=== PATIENT | female | born 1965 | race Two or more races ===

== ENCOUNTER 2021-06-01 14:34 | Emergency (ER) | payer SELFPAY ==
[2021-06-01] MEDS ORDERED: Ketorolac 30 MG/ML SDV IVPUSH ONE (15:34)
[2021-06-01] MEDS ORDERED: HYDROmorphone 2 MG/ML Syringe IVPUSH ONE (15:34)
[2021-06-01] MEDS ORDERED: Sodium Chloride 0.9% 1,000 ML IV ONE (15:34)
[2021-06-01] MEDS ORDERED: Ondansetron 4 MG/2 ML SDV IVPUSH ONE (15:34)
[2021-06-01 16:16] LABS: BLOOD UREA NITROGEN,BUN 15 mg/dL (7.0-18.0); CARBON DIOXIDE,CO2 29.7 mmol/L (21.0-32.0); CHLORIDE,CL 101 mmol/L (98-107); GLUCOSE RANDOM 110 mg/dL (74-106); LIPASE 119 U/L (73-393); POTASSIUM,K 3.8 mmol/L (3.5-5.1); SODIUM,NA 139 mmol/L (136-145)
--- NOTE | 2021-06-01 16:16 | EDM.PDOC ---
ED HPI GENERAL MEDICAL PROBLEM - General Chief Complaint: Abdominal Pain Stated Complaint: ABDOMINAL PAIN Time Seen by Provider: 06/01/21 14:35 Source of Information: Reports: Patient History Limitations: Reports: Language Barrier ([place] track supervisor used) - History of Present Illness INITIAL COMMENTS - FREE TEXT/NARRATIVE: HISTORY AND PHYSICAL: History of present illness: Patient is a 55-year-old female who is primarily speaking so Martti track supervisor was used. Patient is a 55 otherwise [id number] female who presents emergency room today with concern of periumbilical abdominal pain that has been ongoing for the past 1 year, slowly worsening over the past 10 days, with the last 1 day being the worst it has ever been. Patient states that the pain does radiate to her back and is making sleeping difficult over the past several days. Patient denies any abdominal surgeries and states that she has fully gone through menopause. Patient denies any health history. Patient states she did take Tylenol earlier today with mild relief of symptoms. Patient reports some generalized itching but denies any other associative symptoms. Patient denies fever, chills, chest pain, shortness of breath, or cough. Denies headache, neck stiff ness, change in vision, syncope, or near syncope. Denies nausea, vomiting, diarrhea, constipation, or dysuria. Has not noted any blood in urine or stool. Patient has been eating and drinking appropriately. Review of systems: As per history of present illness and below otherwise all systems reviewed and negative. Past medical history: As per history of present illness and as reviewed below otherwise noncontributory. Surgical history: As per history of present illness and as reviewed below otherwise noncontributory. Social history: See social history for further information Family history: As per history of present illness and as reviewed below otherwise noncontributory. Physical exam: General: Patient is alert, oriented, and in no acute distress. Patient laying on exam table, mildly uncomfortable appearing holding mid abdomen. Vitals stable and reviewed by me HEENT: Atraumatic, normocephalic, pupils equal and reactive bilaterally, negative for conjunctival pallor or scleral icterus, mucous membranes moist, TMs normal bilaterally, throat clear, neck supple, nontender, trachea midline. No drooling or trismus noted. No meningeal signs. No hot potato voice noted. Lungs: Clear to auscultation, breath sounds equal bilaterally, chest nontender. Heart: S1S2, regular rate and rhythm without overt murmur Abdomen: Soft, nondistended, moderate periumbilical tenderness with negative martinez/rebound. Negative for masses or hepatosplenomegaly. Negative for costovertebral tenderness. Pelvis: Stable nontender. Genitourinary: Deferred. Rectal: Deferred. Skin: Intact, warm, dry. No lesions or rashes noted. Extremities: No obvious deformity of the complete spine. No step-offs, crepitus, or point tenderness to palpation of the complete spine. Full range of motion of the complete spine without pain or difficulty. Otherwise, atraumatic, negative for cords or calf pain. Neurovascular unremarkable. Neuro: Awake, alert, oriented. Cranial nerves II through XII unremarkable. Cerebellum unremarkable. Motor and sensory unremarkable throughout. Exam nonfocal. Notes: Patient is a 55-year-old female, who is primarily speaking so Martti track supervisor use, who presents emergency room today secondary to periumbilical abdominal pain worsening over the past 1 to 2 days but has been ongoing for the past 1 year. Upon arrival to the ED, patient is vitally stable but does appear to be uncomfortable on exam holding her mid abdomen. Patient does have moderate periumbilical tenderness on exam. Will obtain lab work as well as abdominal pelvic CT scan with contrast and provide pain medication, fluids and reassess patient. Mild derangements of CBC unremarkable. CMP shows a mild elevation of glucose at 110, isolated elevation of alk phos at 154. Otherwise mild derangements of CMP are unremarkable. Urinalysis shows trace leukocyte Estrace with 0 red blood cells and 0-1 white blood cells with 1+ bacteria. There are few epithelial cells suggestive of contamination urine without sign of infection. Lipase is within normal limits. Abdominal pelvic CT with contrast shows diverticulosis sigmoid colon without any CT evidence of diverticulitis or abscess. A 5 x 5.6 x 4.2 cm cyst in the left adnexa: Would recommend transabdominal and transvaginal pelvic ultrasound. Cortical cyst in left pole of right kidney. Small umbilical hernia with fat as its content. Upon reevaluation of patient, she has improvement of her symptoms with therapeutics today in the emergency room and states that she is much more co mfortable. Given abdominal pelvic CT scan findings of left-sided ovarian cyst, will obtain transvaginal ultrasound. Transvaginal ultrasound shows no acute abnormality. Greater than 5 cm cyst in the left ovary. This is a abnormal finding in a postmenopausal patient. Gynecology referral recommended. The right ovary is not visualized on this exam. I did call and speak to the PATIENT SUPPORT PARTNER on-call, Dr. Mcconnlel, and thoroughly discussed patient's case. Given that patient has improvement of her symptoms with therapeutics and pain is controlled at this time, Dr. Armendariz feels that patient can call Friday morning for follow-up in the clinic for further evaluation/treatment for her left ovarian cyst. Reevaluation still suggest that patient has improvement of her symptoms with therapeutics. Strict return precautions thoroughly discussed with patient. Discussed importance for calling Friday to set up an appointment time at [facility] or with a women's health care provider and primary care provider. All signs and symptoms that were prompt return to the ED thoroughly discussed with patient. Voices understanding and is agreeable to plan of care. Denies any further questions or concerns at this time. Diagnostics: CBC, CMP, UA, abdominal pelvic CT scan with contrast, lipase, TVUS, Transabd US Therapeutics: Normal saline, Zofran, Toradol, Dilaudid Prescription: Zofran Impression: Left-sided ovarian cyst Abdominal pain Plan: 1. You can alternate ibuprofen and Tylenol as directed for pain and discomfort. Take medication as prescribed. 2. Follow-up with a women's health care provider and primary care provider as discussed. Return to the ED as needed and as discussed. Definitive disposition and diagnosis as appropriate pending reevaluation and review of above. Left Abdomen Pain Score (Numeric/FACES): 7 - Related Data Allergies Allergy/AdvReac Type Severity Reaction Status Date / Time No Known Allergies Allergy Verified 06/01/21 15:18 Home Meds: Home Meds Ondansetron [Zofran ODT] 4 mg PO Q6H PRN #10 tab.dis 06/01/21 [Rx] Past Medical History - Past Health History Medical/Surgical History: Denies Medical/Surgical History - Infectious Disease History Infectious Disease History: Reports: None Social & Family History - Tobacco Use Tobacco Use Status *Q: Never Tobacco User - Caffeine Use Caffeine Use: Reports: None - Recreational Drug Use Recreational Drug Use: No ED ROS GENERAL - Review of Systems Review Of Systems: Comprehensive ROS is negative, except as noted in HPI. ED EXAM, GENERAL - Physical Exam Exam: See Below (see dictation) Course - Vital Signs Last Recorded V/S: Last Vital Signs Temp 98.3 F 06/01/21 15:18 Pulse 63 06/01/21 18:17 Resp 16 06/01/21 15:18 BP 103/42 L 06/01/21 18:17 Pulse Ox 95 06/01/21 18:17 - Orders/Labs/Meds Orders: Active Orders 24 hr Category Date Time Status CULTURE URINE [MREF] Stat Lab 06/01/21 16:45 Received Labs: Laboratory Tests 06/01/21 06/01/21 06/01/21 Range/Units 15:15 15:15 16:45 WBC 10.53 (4.0-11.0) K/uL RBC 4.82 (4.30-5.90) M/uL Hgb 14.1 (12.0-16.0) g/dL Hct 42.2 (36.0-46.0) % MCV 87.6 (80.0-98.0) fL MCH 29.3 (27.0-32.0) pg MCHC 33.4 (31.0-37.0) g/dL RDW Std Deviation 40.8 (28.0-62.0) fl RDW Coeff of Sindy 13 (11.0-15.0) % Plt Count 353 (150-400) K/uL MPV 10.30 (7.40-12.00) fL Neut % (Auto) 63.4 (48.0-80.0) % Lymph % (Auto) 24.9 (16.0-40.0) % [place] % (Auto) 6.3 (0.0-15.0) % Eos % (Auto) 4.7 (0.0-7.0) % Baso % (Auto) 0.7 (0.0-1.5) % Neut # (Auto) 6.7 H (1.4-5.7) K/uL Lymph # (Auto) 2.6 H (0.6-2.4) K/uL [place] # (Auto) 0.7 (0.0-0.8) K/uL Eos # (Auto) 0.5 (0.0-0.7) K/uL Baso # (Auto) 0.1 (0.0-0.1) K/uL Nucleated RBC % 0.0 /100WBC Nucleated RBCs # 0 K/uL Sodium 139 (136-145) mmol/L Potassium 3.8 (3.5-5.1) mmol/L Chloride 101 (98-107) mmol/L Carbon Dioxide 29.7 (21.0-32.0) mmol/L BUN 15 (7.0-18.0) mg/dL Creatinine 0.7 (0.6-1.0) mg/dL Est Cr Clr Drug Dosing 64.46 mL/min Estimated GFR (MDRD) > 60.0 ml/min Glucose 110 H (74-106) mg/dL Calcium 8.5 (8.5-10.1) mg/dL Total Bilirubin 0.2 (0.2-1.0) mg/dL AST 14 L (15-37) IU/L ALT 32 (14-63) IU/L Alkaline Phosphatase 154 H (46-116) U/L Total Protein 8.2 (6.4-8.2) g/dL Albumin 3.9 (3.4-5.0) g/dL Globulin 4.3 H (2.6-4.0) g/dL Albumin/Globulin Ratio 0.9 (0.9-1.6) Lipase 119 (73-393) U/L Urine Color YELLOW Urine Appearance SLT CLOUDY Urine pH 7.0 (5.0-8.0) Ur Specific Placida 1.015 (1.001-1.035) Urine Protein NEGATIVE (NEGATIVE) mg/dL Urine Glucose (UA) NEGATIVE (NEGATIVE) mg/dL Urine Ketones NEGATIVE (NEGATIVE) mg/dL Urine Occult Blood NEGATIVE (NEGATIVE) Urine Nitrite NEGATIVE (NEGATIVE) Urine Bilirubin NEGATIVE (NEGATIVE) Urine Urobilinogen 0.2 (<2.0) EU/dL Ur Leukocyte Esterase TRACE H (NEGATIVE) Urine RBC NONE SEEN (0-2/HPF) Urine WBC 0-1 (0-5/HPF) Ur Epithelial Cells FEW (NONE-FEW) Amorphous Sediment LIGHT (NEGATIVE) Urine Bacteria 1+ H (NEGATIVE) Urine Mucus LIGHT (NONE-MOD) Meds: Medications Discontinued Medications Generic Name Dose Route Start Last Admin Trade Name Freq PRN Reason Stop Dose Admin Hydromorphone HCl 0.5 mg 06/01/21 15:34 06/01/21 15:46 Hydromorphone 2 Mg/Ml Syringe IVPUSH 06/01/21 15:35 0.5 mg ONETIME ONE Administration Sodium Chloride 1,000 mls @ 999 mls/hr 06/01/21 15:34 06/01/21 15:45 Normal Saline IV 06/01/21 16:34 999 mls/hr BOLUS ONE Administration Iopamidol 100 ml 06/01/21 16:54 06/01/21 16:55 Iopamidol 755 Mg/Ml 500 Ml Multipack Bottle IVPUSH 06/01/21 16:55 100 ml ONETIME ONE Administration Ketorolac Tromethamine 30 mg 06/01/21 15:34 06/01/21 15:45 Ketorolac 30 Mg/Ml Sdv IVPUSH 06/01/21 15:35 30 mg ONETIME ONE Administration Ondansetron HCl 4 mg 06/01/21 15:34 06/01/21 15:46 Ondansetron 4 Mg/2 Ml Sdv IVPUSH 06/01/21 15:35 4 mg ONETIME ONE Administration Departure - Departure Time of Disposition: 19:35 Disposition: Home, Self-Care 01 Clinical Impression: Ovarian cyst Qualifiers: Laterality: left Qualified Code(s): N83.202 - Unspecified ovarian cyst, left side Abdominal pain Qualifiers: Abdominal location: periumbilical Qualified Code(s): R10.33 - Periumbilical pain - Discharge Information Prescriptions: Ondansetron [Zofran ODT] 4 mg PO Q6H PRN #10 tab.dis PRN Reason: Nausea/Vomiting Instructions: Abdominal Pain, Adult, [id number], Ovarian Cyst, [id number] Referrals: PCP,None [Primary Care Provider] - Forms: ED Department Discharge Additional Instructions: The following information is given to patients seen in the emergency department who are being discharged to home. This information is to outline your options for follow-up care. We provide all patients seen in our emergency department with a follow-up referral. The need for follow-up, as well as the timing and circumstances, are variable depending upon the specifics of your emergency department visit. If you don't have a primary care physician on staff, we will provide you with a referral. We always advise you to contact your personal physician following an emergency department visit to inform them of the circumstance of the visit and for follow-up with them and/or the need for any referrals to a consulting specialist. The emergency department will also refer you to a specialist when appropriate. This referral assures that you have the opportunity for follow-up care with a specialist. All of these measure are taken in an effort to provide you with optimal care, which includes your follow-up. Under all circumstances we always encourage you to contact your private physician who remains a resource for coordinating your care. When calling for follow-up care, please make the office aware that this follow-up is from your recent emergency room visit. If for any reason you are refused follow-up, please contact the [facility] Emergency Department at and asked to speak to the emergency department charge nurse. [facility] [address] [place] [address] [facility] [address] [place] [address] [facility] [address] [place] [address] 1. You can alternate ibuprofen and Tylenol as directed for pain and discomfort. Take medication as prescribed. 2. Follow-up with a women's health care provider and primary care provider as discussed. Return to the ED as needed and as discussed. Sepsis Event Note (ED) - Focused Exam Vital Signs: Vital Signs Temp Pulse Resp BP Pulse Ox 06/01/21 18:17 63 103/42 L 95 06/01/21 15:18 98.3 F 76 16 139/72 96 - My Orders Last 24 Hours: My Active Orders 06/01/21 16:45 CULTURE URINE [MREF] Stat - Assessment/Plan Last 24 Hours: My Active Orders 06/01/21 16:45 CULTURE URINE [MREF] Stat
[2021-06-01] MEDS ORDERED: Iopamidol 755 MG/ML 500 ML Multipack Bottle IVPUSH ONE (16:54)
--- NOTE | 2021-06-01 17:45 | CT ---
INDICATION: Periumbilical abdominal pain. COMPARISON: None. TECHNIQUE: CT abdomen and pelvis with intravenous contrast; coronal and sagittal reformats. FINDINGS: No abnormal intra pulmonary nodular densities through the lung bases. No evidence of pleural effusion. Normal size cardiac silhouette without any evidence of pericardial effusion. No focal hepatic or splenic pathology. No pancreatic pathology. Gallbladder is unremarkable. No adrenal pathology. No kidney stones or obstructive uropathy.A 3.3 x 3 x 3.2 cm cyst lower pole right kidney. No retroperitoneal lymphadenopathy. No evidence of abdominal or pelvic ascites. Normal appendix. No pneumoperitoneum or intestinal obstruction. Diverticulosis sigmoid colon without any CT evidence of diverticulitis or abscess. A 5 x 5.6 x 4.2 cm cystic lesion left adnexa; suggest obtaining a transabdominal and transvaginal pelvic ultrasound for further assessment. no evidence of inguinal hernia on either side. Small umbilical hernia with fat as its content. IMPRESSION: 1. Diverticulosis sigmoid colon without any CT evidence of diverticulitis or abscess . 2. A 5 x 5.6 x 4.2 cm cyst left adnexa; transabdominal and transvaginal pelvic ultrasound suggested. 3. Cortical cyst lower pole right kidney. 4. Small umbilical hernia with fat as its content. 5. Cause for the patient`s periumbilical pain use not evident on the CT study. Please note that all CT scans at this facility use dose modulation, iterative reconstruction, and/or weight-based dosing when appropriate to reduce radiation dose to as low as reasonably achievable. Dictated by Andre Perry MD @ 06/01/2021 5:43:[address] Andre Perry @ Jun 01 2021 5:43PM
--- NOTE | 2021-06-01 19:28 | US ---
INDICATION: Left ovarian cyst on CT, postmenopausal TECHNIQUE: Ultrasound pelvis transvaginal for better assessment or to better visualize the endometrium. Real-time sonographic images with spectral and color Doppler imaging of the ovaries were obtained. COMPARISON: CT abdomen pelvis from same FINDINGS: Uterus: 5.4 x 4.0 x 2.7 cm. Normal echotexture of the myometrium. No masses. Endometrium: Transvaginal imaging was performed to better evaluate the endometrium. 2 mm in thickness. No sign of endometrial mass or fluid. Right ovary: Unable to visualize. Left ovary: 5.6 x 4.8 x 4.4 cm. There is a 5.2 x 4.2 x 4.0 cm cyst on the left ovary. Normal arterial and venous blood flow. Cul-de-sac: No significant free fluid. IMPRESSION: No acute abnormality. Greater than 5 cm cyst on the left ovary. This is an abnormal finding in a postmenopausal patient. Gynecology referral recommended. The right ovary was not visualized on this exam. Dictated by Daiana Lu MD @ 06/01/2021 7:27:14 PM (Electronically Signed)
== END 2021-06-01 20:23 | disposition home or self-care (01) ==
LOC: MW.ED 14:34
DX: N83.202 Unspecified ovarian cyst, left side (principal)
CPT/HCPCS: 36415; 74177; 76830; 80053; 81001; 83690; 85025; 87086; 96374; 96375; 99284; J1170; J1885; J2405; J7030; Q9967

== ENCOUNTER 2021-07-24 10:14 | Day surgery (SDC) | payer SELFPAY ==
[~2021-07-24 10:14] MED LIST: Lactated Ringers 1,000 ML IV SCH; Sodium Chloride 0.9% 10 ML SDV IV PRN; Sodium Chloride 0.9% 10 ML Syringe FLUSH PRN; Sodium Chloride 0.9% 2.5 ML Syringe FLUSH PRN
--- NOTE | 2021-07-24 11:11 | PCM.PREANE ---
Preanesthetic Assessment - Anesthesia/Transfusion/Family Hx Anesthesia History: Prior Anesthesia Reaction Transfusion History: Prior Transfusion Without Reaction - Review of Systems General: No Symptoms Pulmonary: No Symptoms Cardiovascular: No Symptoms Gastrointestinal: No Symptoms Neurological: No Symptoms Other: Reports: None - Physical Assessment NPO Status Date: 07/24/21 NPO Status Time: 00:00 Vital Signs: Last Vital Signs Temp 97.5 F 07/24/21 10:32 Pulse 76 07/24/21 10:32 Resp 16 07/24/21 10:32 BP 139/71 07/24/21 10:32 Pulse Ox 97 07/24/21 10:32 Height: 4 ft 10 in Weight: 171 lb ASA Class: 2 Mental Status: Alert & Oriented x3 Airway Class: Mallampati = 2 Dentition: Reports: Normal Dentition Thyro-Mental Finger Breadths: 3 Mouth Opening Finger Breadths: 3 ROM/Head Extension: Full Lungs: Clear to Auscultation, Normal Respiratory Effort Cardiovascular: Regular Rate, Regular Rhythm - Allergies Allergies/Adverse Reactions: Allergies Allergy/AdvReac Type Severity Reaction Status Date / Time No Known Allergies Allergy Verified 07/18/21 11:47 - Acknowledgements Anesthesia Type Planned: General Anesthesia Pt an Appropriate Candidate for the Planned Anesthesia: Yes Alternatives and Risks of Anesthesia Discussed w Pt/Guardian: Yes Pt/Guardian Understands and Agrees with Anesthesia Plan: Yes PreAnesthesia Questionnaire - Past Health History Medical/Surgical History: Denies Medical/Surgical History HEENT History: Reports: Other (See Below) Other HEENT History: wears glasses Cardiovascular History: Reports: None Respiratory History: Reports: None Gastrointestinal History: Reports: Other (See Below) Other Gastrointestinal History: current abdominal pain Genitourinary History: Reports: Other (See Below) Other Genitourinary History: right renal cyst TRANSMISSION BUILDER History: Reports: Musculoskeletal History: Reports: None Neurological History: Reports: Seizure Other Neuro History: hx of seizures as a baby Psychiatric History: Reports: None Endocrine/Metabolic History: Reports: Obesity/BMI 30+ Hematologic History: Reports: Blood Transfusion(s) Immunologic History: Reports: None Oncologic (Cancer) History: Reports: None Dermatologic History: Reports: None - Infectious Disease History Infectious Disease History: Reports: None - Past Surgical History Head Surgeries/Procedures: Reports: None HEENT Surgical History: Reports: None Cardiovascular Surgical History: Reports: None Respiratory Surgical History: Reports: None GI Surgical History: Reports: None Female Surgical History: Reports: Cystectomy Endocrine Surgical History: Reports: None Neurological Surgical History: Reports: None Musculoskeletal Surgical History: Reports: None Oncologic Surgical History: Reports: None Dermatological Surgical History: Reports: None - SUBSTANCE USE Tobacco Use Status *Q: Never Tobacco User Recreational Drug Use History: No - HOME MEDS Home Medications: Home Meds . [No Known Home Meds] 07/18/21 [History] - CURRENT (IN HOUSE) MEDS Current Meds: Current Medications Lactated Ringer's (Ringers, Lactated) 1,000 mls @ 125 mls/hr IV ASDIRECTED COSTA Last Admin: 07/24/21 10:39 Dose: 125 mls/hr Documented by: Sodium Chloride (Sodium Chloride 0.9% 10 Ml Syringe) 10 ml FLUSH ASDIRECTED PRN PRN Reason: Keep Vein Open Sodium Chloride (Sodium Chloride 0.9% 2.5 Ml Syringe) 2.5 ml FLUSH ASDIRECTED PRN PRN Reason: Keep Vein Open Sodium Chloride (Sodium Chloride 0.9% 10 Ml Syringe) 10 ml FLUSH ASDIRECTED PRN PRN Reason: Keep Vein Open Sodium Chloride (Sodium Chloride 0.9% 2.5 Ml Syringe) 2.5 ml FLUSH ASDIRECTED PRN PRN Reason: Keep Vein Open Sodium Chloride (Sodium Chloride 0.9% 10 Ml Sdv) 10 ml IV ASDIRECTED PRN PRN Reason: IV Use
[2021-07-24] MEDS ORDERED: fentaNYL 100 MCG/2 ML SDV ONE (11:55)
[2021-07-24] MEDS ORDERED: Lidocaine 2% 5 ML SDV ONE (11:55)
[2021-07-24] MEDS ORDERED: Propofol 200 MG/20 ML SDV ONE (11:59)
--- NOTE | 2021-07-24 13:13 | PCM.OPNOTE ---
- General Post-Op/Procedure Note Date of Surgery/Procedure: 07/24/21 Operative Procedure(s): Diagnostic EGD and incomplete colonoscopy Findings: Normal appearing EGD, incomplete colonoscopy unable to transverse beyond 25 cm, sigmoid colon polyp @ 20 cm and rectal polyp @ 15 cm Pre Op Diagnosis: Epigastric abdominal pain, change in bowel habits Post-Op Diagnosis: Sigmoid colon polyp, rectal polyp Anesthesia Technique: MAC Primary Surgeon: Joanne Hager Condition: Good
--- NOTE | 2021-07-24 13:43 | PCM.POSTAN ---
POST ANESTHESIA ASSESSMENT - MENTAL STATUS Mental Status: Alert, Oriented - VITAL SIGNS Vital Signs: Last Vital Signs Temp 36.3 C 07/24/21 13:11 Pulse 64 07/24/21 13:27 Resp 20 07/24/21 13:27 BP 129/69 07/24/21 13:27 Pulse Ox 97 07/24/21 13:27 - RESPIRATORY Respiratory Status: Respiratory Rate WNL, Airway Patent, O2 Saturation Stable - CARDIOVASCULAR CV Status: Pulse Rate WNL, Blood Pressure Stable - GASTROINTESTINAL GI Status: No Symptoms - POST OP HYDRATION Hydration Status: Adequate & Stable
--- NOTE | 2021-07-24 13:44 | PCM48HPAN ---
Post Anesthesia Note - EVALUATION WITHIN 48HRS OF ANESTHETIC Vital Signs in Normal Range: Yes Patient Participated in Evaluation: Yes Respiratory Function Stable: Yes Airway Patent: Yes Cardiovascular Function Stable: Yes Hydration Status Stable: Yes Pain Control Satisfactory: Yes Nausea and Vomiting Control Satisfactory: Yes Mental Status Recovered: Yes Vital Signs: Last Vital Signs Temp 36.3 C 07/24/21 13:11 Pulse 64 07/24/21 13:27 Resp 20 07/24/21 13:27 BP 129/69 07/24/21 13:27 Pulse Ox 97 07/24/21 13:27
--- NOTE | 2021-07-24 15:11 | PCM48HPAN ---
Post Anesthesia Note - EVALUATION WITHIN 48HRS OF ANESTHETIC Vital Signs in Normal Range: Yes Patient Participated in Evaluation: Yes Respiratory Function Stable: Yes Airway Patent: Yes Cardiovascular Function Stable: Yes Hydration Status Stable: Yes Pain Control Satisfactory: Yes Nausea and Vomiting Control Satisfactory: Yes Mental Status Recovered: Yes Vital Signs: Last Vital Signs Temp 97.2 F 07/24/21 13:35 Pulse 60 07/24/21 13:35 Resp 14 07/24/21 13:35 BP 151/69 H 07/24/21 13:35 Pulse Ox 96 07/24/21 13:35
--- NOTE | 2021-07-24 15:11 | PCM.POSTAN ---
POST ANESTHESIA ASSESSMENT - MENTAL STATUS Mental Status: Alert, Oriented - VITAL SIGNS Vital Signs: Last Vital Signs Temp 97.2 F 07/24/21 13:35 Pulse 60 07/24/21 13:35 Resp 14 07/24/21 13:35 BP 151/69 H 07/24/21 13:35 Pulse Ox 96 07/24/21 13:35 - RESPIRATORY Respiratory Status: Respiratory Rate WNL, Airway Patent, O2 Saturation Stable - CARDIOVASCULAR CV Status: Pulse Rate WNL, Blood Pressure Stable - GASTROINTESTINAL GI Status: No Symptoms - POST OP HYDRATION Hydration Status: Adequate & Stable
--- NOTE | 2021-07-24 22:33 | OR ---
SURGEON: JOANNE HAGER MD DATE OF PROCEDURE: 07/24/2021 PREOPERATIVE DIAGNOSES: Upper abdominal pain, change in bowel habits. POSTOPERATIVE DIAGNOSES: 1. Upper abdominal pain. 2. Sigmoid colon polyp. 3. Rectal polyp. PROCEDURES PERFORMED: 1. Diagnostic esophagogastroduodenoscopy. 2. Colonoscopy, incomplete. PRIMARY SURGEON: Joanne Hager MD ANESTHESIA: MAC. INSTRUMENT USED: Olympus endoscope and colonoscope. EXTENT OF THE EXAM: To the second portion of duodenum, to 25 cm in the sigmoid colon. PREPARATION: Good. LIMITATIONS: Unable to mechanically pass the scope past 25 cm. INDICATIONS: The patient is a 56-year-old female who presented to my clinic with upper abdominal pain as well as a change in her bowel habits. The decision was made to proceed with diagnostic EGD and colonoscopy. I explained the procedure, expected perioperative course, and the risks. She verbalized understanding and wishes to proceed. PROCEDURE IN DETAIL: The patient was brought into the endoscopy suite and placed in the left lateral decubitus position. A time-out was completed verifying the patient's name, age, date of , allergies, and procedure to be performed. A bite block was placed in the patient's mouth. Monitored anesthesia care was induced and continuous oxygen was provided via face mask throughout the procedure. After adequate sedation was achieved, a well-lubricated endoscope was placed in the patient's mouth and advanced under direct visualization to the second portion of duodenum. This appeared normal and a photograph was taken. The scope was then fully withdrawn while examining the color, texture, anatomy, and integrity mucosa of the upper GI tract. Random biopsies were taken of the duodenum, antrum, body, fundus, and esophagus throughout the case and sent for histologic review and H pylori testing. The duodenum appeared normal. The scope was brought into the stomach and a photograph was taken of the pylorus and GE junction. Both appeared anatomically normal. The gastric mucosa was free of gross inflammation or ulceration. A photograph was taken of the Z-line. This appeared normal. The biopsy in the esophagus was taken 1 cm above the Z-line. The esophagus itself appeared free of pathology. The scope was removed and this portion of procedure terminated. A digital rectal exam was performed. This exam was within normal limits. A well-lubricated colonoscope was inserted into the rectum and advanced under direct visualization. At 15 cm from the anal verge, the patient was noted to have a pedunculated polyp. This was removed using a hot snare. The area was then inked with 0.5 mL of endoscopic ink for identification in the future. The scope was advanced further. At 20 cm, the patient had another pedunculated polyp. This was looped with a hot snare, however, upon looping it, the colon spasmed. The scope was held in place once the colon spasm had gone away. The top of the pedunculated polyp appeared to have been cut. It was assumed that the specimen had gone further up into the colon. Biopsies were taken of the base of the stalk and sent to Pathology for histologic review. These polyp specimens were labeled as sigmoid colon polyp. The area was inked with the same amount of identification ink for future identification of this area. I attempted to navigate my scope further up the colon, however, despite multiple position changes and scope manipulation, I was unable to get the scope to go past 25 cm in the sigmoid colon. After 1 hour of attempting to pass my scope, I decided to abort the procedure. The scope was removed and I inspected my polypectomy sites. No further bleeding was noted at these. The scope was brought into the rectum and retroflexed to allow visualization of the anal canal opening. This appeared normal and a photograph was taken. The scope was straightened out and fully withdrawn. The patient was awoken and taken to PACU in stable condition. ENDOSCOPIC DIAGNOSES: 1. Upper abdominal pain. 2. Sigmoid colon polyp. 3. Rectal polyp. RECOMMENDATIONS: I visited with the patient and her son in the postoperative care area. The patient will likely need a barium enema in the near future. I will follow up with them in two weeks in clinic to discuss her upper GI biopsy results as well as the pathology results of the two polyps removed from her colon. BERNY / ARLYN /[id number]
== END 2021-07-24 14:11 | disposition home or self-care (01) ==
LOC: MW.SDS 10:14
PROVIDERS: ATTEND Surgery
DX: D12.8 Benign neoplasm of rectum (principal); K58.9 Irritable bowel syndrome, unspecified; K29.50 Unspecified chronic gastritis without bleeding; K29.00 Acute gastritis without bleeding; B96.81 Helicobacter pylori [H. pylori] as the cause of diseases classified elsewhere; K20.90 Esophagitis, unspecified without bleeding; E78.5 Hyperlipidemia, unspecified; E05.90 Thyrotoxicosis, unspecified without thyrotoxic crisis or storm; E66.9 Obesity, unspecified; Z98.890 Other specified postprocedural states
CPT/HCPCS: 43239; 45335; 45338; 88305; 88342; J2704; J3010; J7120; 00813